=== PATIENT | male | born 1990 | race Caucasian/White ===

== ENCOUNTER 2020-05-17 21:35 | Emergency (ER) | payer BC ==
[~2020-05-17] VITALS: Ht 167.6 cm; Wt 77.7 kg
[2020-05-17 23:27] LABS: BASO # 0.1 10^3/uL (0.0-0.2); BASO % 0.8 % (0.0-1.0); EOS # 0.3 10^3/uL (0.0-0.5); EOS % 3.4 % (0.0-3.0); HEMOGLOBIN 14.5 g/dl (13.5-17.5); LYMPH # 1.5 10^3/uL (1.5-5.0); LYMPH % 19.4 % (24.0-44.0); MEAN CORPUSCULAR HEMOGLOBIN 29.9 pg (27.0-33.0); MEAN CORPUSCULAR VOLUME 90.7 fl (80.0-96.0); MONO # 0.6 10^3/uL (0.0-0.8); MONO % 7.6 % (0.0-5.0); NEUTROPHILS # 5.3 10^3/uL (1.5-8.5); NEUTROPHILS % 68.4 % (36.0-66.0); PLATELET COUNT, AUTOMATED 226 10^3/uL (150-450); RED BLOOD COUNT 4.85 10^6/uL (4.30-6.10); WHITE BLOOD COUNT 7.8 10^3/uL (4.0-10.0)
[2020-05-17] MEDS ORDERED: KETOROLAC 30 MG/ML 1ML VIAL IV ONE (23:45)
[2020-05-17] MEDS ORDERED: NS 1,000 ML IV ONE (23:45)
[2020-05-17 23:56] LABS: ALT/SGPT 36 U/L (12-78); BILIRUBIN,DIRECT < 0.1 MG/DL (0.0-0.2); BILIRUBIN,TOTAL 0.3 MG/DL (0.2-1.0); BLOOD UREA NITROGEN 9 MG/DL (7-18); CALCIUM LEVEL 8.8 MG/DL (8.5-10.1); CARBON DIOXIDE LEVEL 30 MEQ/L (21-32); CHLORIDE LEVEL 107 MEQ/L (98-107); CREATININE FOR GFR 1.28 MG/DL (0.70-1.30); GLOMERULAR FILTRATION RATE > 60.0 (>60); GLUCOSE, FASTING 120 MG/DL (70-100); LIPASE 171 U/L (73-393); SODIUM LEVEL 141 MEQ/L (136-145); TOTAL PROTEIN 7.1 GM/DL (6.4-8.2)
--- NOTE | 2020-05-18 00:25 | REPVR ---
PROCEDURE INFORMATION: Exam: CT Abdomen And Pelvis Without Contrast Exam date and time: 05/17/2020 11:34 PM Age: 30 years old Clinical indication: Abdominal pain; Localized; Left lower quadrant (llq); Additional info: Llq pain ? renal colic TECHNIQUE: Imaging protocol: Computed tomography of the abdomen and pelvis without contrast. Radiation optimization: All CT scans at this facility use at least one of these dose optimization techniques: automated exposure control; mA and/or kV adjustment per patient size (includes targeted exams where dose is matched to clinical indication); or iterative reconstruction. COMPARISON: No relevant prior studies available. FINDINGS: Lungs: The imaged portions of the lung bases are clear. The lungs were not fully imaged. Heart: No cardiomegaly. No pericardial effusion. Liver: The imaged portion of the liver is unremarkable. The superior aspect of the right hepatic lobe was not fully imaged. Gallbladder and bile ducts: No calcified gallstones are noted. No gallbladder wall thickening, pericholecystic fluid, or pericholecystic inflammatory changes are identified. No dilation of the bile ducts is noted. No calcified stones are seen in the common bile duct. Pancreas: Unremarkable. No dilation of the main pancreatic duct is noted. There is no inflammatory fat stranding around the pancreas to suggest acute pancreatitis. Spleen: Unremarkable. No splenomegaly is noted. Adrenal glands: Normal. No adrenal mass is noted. Kidneys and ureters: There is a 2 mm calculus an interpolar calyx of the left kidney. No stones are noted in the right kidney or ureters. There is mild left hydroureteronephrosis. No renal lesion is identified. Stomach and bowel: The stomach is distended with ingested material. The small bowel is unremarkable. There is no evidence for a bowel obstruction, diverticulosis, diverticulitis, colitis, perforated viscus, pneumatosis intestinalis, intussusception, or volvulus. Appendix: Normal. There is no evidence for appendicitis. Intraperitoneal space: No free air. No ascites. No asbcess. Retroperitoneal space: No fluid collection. No mass. Vasculature: The abdominal aorta is normal in caliber. Incidental note is made of small round calcifications in the pelvis, which are compatible with phleboliths. Lymph nodes: No enlarged lymph nodes. Urinary bladder: There is a 2 mm calculus in the posterior portion of the urinary bladder. There is thickening of the wall of the partially distended urinary bladder. Reproductive: The prostate gland and seminal vesicles are unremarkable. Bones/joints: At the L4-L5 and L5-S1 levels, there are mild broad-based posterior protrusions, but no significant spinal canal or neural foraminal stenosis is noted. There is no fracture or dislocation. No suspicious osteolytic or osteoblastic lesion. Soft tissues: There is a small fat containing umbilical hernia. IMPRESSION: 1. 2 mm calculus in the posterior portion of the urinary bladder and mild left hydroureteronephrosis. 2. 2 mm calculus in the left kidney. 3. Thickening of the wall of the urinary bladder, which may be secondary to its partially distended state, bladder wall hypertrophy, or cystitis. Correlation with urinalysis is suggested. 4. Small fat containing umbilical hernia. Electronically signed by: Eugene Nascimento On 05/18/2020 00:24:55 AM
[2020-05-18] MEDS ORDERED: ONDA4TAB6 PO (00:45)
[2020-05-18] MEDS ORDERED: IBUP-1022 PO (00:45)
[2020-05-18 01:02] VITALS: BP 139/80
== END 2020-05-18 01:04 | disposition home or self-care (01) ==
LOC: M ED 21:35
DX: N21.0 Calculus in bladder (principal); N20.0 Calculus of kidney; R10.32 Left lower quadrant pain; K44.9 Diaphragmatic hernia without obstruction or gangrene
CPT/HCPCS: 74176; 80048; 80076; 81001; 83690; 85025; 96361; 96374; 99284; J1885